=== PATIENT | male | born 1970 | race Caucasian/White ===

== ENCOUNTER 2025-04-20 01:14 | Emergency (ER) | payer OTHER ==
[~2025-04-20] VITALS: Ht 157.5 cm; Wt 100.5 kg
[2025-04-20 01:27] VITALS: TEMP 97.7
[2025-04-20 01:48] LABS: BASOPHILS % (AUTO) 0.5 % (0.0-2.0); EOSINOPHILS % (AUTO) 2.3 % (1.0-6.0); HEMATOCRIT 42.4 % (41-53); HEMOGLOBIN 13.5 g/dL (13.5-17.5); LYMPHOCYTES # (AUTO) 1.4 K/uL (1.0-4.8); LYMPHOCYTES % (AUTO) 15.6 % (22.0-44.0); MEAN CORPUSCULAR HGB CONC 31.8 G/dL (31.0-37.0); MEAN CORPUSCULAR VOLUME 69 fL (80-100); MONOCYTES # (AUTO) 0.7 K/uL (0.1-1.0); MONOCYTES % (AUTO) 7.2 % (2.0-9.0); NEUTROPHILS # (AUTO) 6.8 K/uL (1.8-7.7); NEUTROPHILS % (AUTO) 74.4 % (40.0-70.0); PLATELET COUNT (AUTO) 202 K/uL (150-450); RED BLOOD CELL COUNT(AUTO) 6.11 MIL/uL (4.50-5.90); RED CELL DISTRIBUTION WIDTH 17.3 % (11.5-14.5); WHITE BLOOD COUNT (AUTO) 9.2 K/uL (4.5-11.0)
[2025-04-20 01:56] LABS: ANION GAP 6 mmol/L (8-16); CALCIUM, TOTAL 8.7 mg/dL (8.8-10.5); CARBON DIOXIDE 28 mmol/L (22-29); CHLORIDE 99 mmol/L (98-107); CREATININE 1.07 mg/dL (0.60-1.30); GLOMERULAR FILTR. RATE CALC > 60 mL/min (>60); GLUCOSE,RANDOM 323 mg/dL (70-110); SODIUM SERUM 133 mmol/L (136-145); UREA NITROGEN, BLOOD 15 mg/dL (7-18)
[2025-04-20 02:01] LABS: RBC MORPHOLOGY COMMENT ABNORMAL RBC MORPH
[2025-04-20 02:05] LABS: TROPONIN I-HIGH SENSITIVITY 6 ng/L (<76)
[2025-04-20 02:11] LABS: APPEARANCE,URINE CLEAR (CLEAR); BILIRUBIN,URINE NEGATIVE (NEGATIVE); COLOR,URINE COLORLESS (YELLOW); GLUCOSE, URINE (UA) >=1000 mg/dL (NEGATIVE); KETONES,URINE NEGATIVE (NEGATIVE); LEUKOCYTE ESTERASE ,URINE NEGATIVE (NEGATIVE); NITRATE,URINE NEGATIVE (NEGATIVE); OCCULT BLOOD,URINE NEGATIVE (NEGATIVE); PH,URINE 5.5 (5.0-8.0); PROTEIN,URINE NEGATIVE (NEGATIVE); SPECIFIC GRAVITIY, URINE 1.026 (1.003-1.030); UROBILINOGEN,URINE <=1.0 mg/dL (<=1.0)
[2025-04-20 02:18] LABS: BACTERIA,URINE None Seen /HPF (None Seen); RBC,URINE None Seen /HPF (0-2); SQUAMOUS EPITHELIAL CELL,UR Few /LPF (None Seen); WBC,URINE None Seen /HPF (0-5)
[2025-04-20 02:30] LABS: B-TYPE NATRIURETIC PEPTIDE 23 pg/mL (0-100); CREATINE KINASE, TOTAL ONLY 96 U/L (39-308)
[2025-04-20] MEDS ORDERED: MORPHINE SULFATE 2 MG/ML SYRINGE IVP ONE (02:30)
[2025-04-20] MEDS: PredniSONE 20 MG TABLET PO ONE (03:30)
[2025-04-20] MEDS: HYDROCODONE/ACETAMINOPHEN 5-325 MG TABLET PO ONE (03:30)
[2025-04-20] MEDS: FUROSEMIDE 20 MG/2 ML VIAL IVP ONE (03:47)
[2025-04-20] MEDS ORDERED: PRED-554 PO (04:06)
[2025-04-20] MEDS ORDERED: HYDR-4062 PO (04:06)
[2025-04-20 04:28] LABS: TROPONIN I-HIGH SENSITIVITY 6 ng/L (<76)
[2025-04-20 04:31] VITALS: BP 118/71; PULSE 86; RESP 16; O2SAT 99
== END 2025-04-20 05:03 | disposition home or self-care (01) ==
LOC: EMS 01:16
DX: R07.89 Other chest pain (principal); J45.909 Unspecified asthma, uncomplicated; I10 Essential (primary) hypertension; E11.9 Type 2 diabetes mellitus without complications; Z88.0 Allergy status to penicillin; Z95.1 Presence of aortocoronary bypass graft
CPT/HCPCS: 80048; 81001; 82550; 83880; 84484; 85025; 36415; 71045; 82962; 99285; 93005; 96374; J1940; J2270; J7512